=== PATIENT | female | born 1935 | race Caucasian/White ===

== ENCOUNTER 2020-09-09 21:23 | Inpatient (IN) | payer MEDICARE, MEDICAID ==
[~2020-09-09] VITALS: Ht 157.5 cm; Wt 43.3 kg
[~2020-09-09 21:23] MED LIST: ANAS1TAB7 PO; ASPI-1497 PO; ATOR20TA PO; CIME400T PO; CLOP75TA33 PO; DOCU-138 PO; DONE10TA43 PO; FERR-63 PO; GLYB5TAB7 PO; LISI10TA26 PO; MEMA1TAB PO; METF-414 PO; NAPR220C15 PO; TAMO20TA4 PO
[2020-09-09 21:30] VITALS: BP 151/62
[2020-09-09] MEDS ORDERED: ZOLPIDEM TARTRATE 5MG TABLET PO PRN (23:45)
[2020-09-09] MEDS ORDERED: ACETAMINOPHEN 325MG TABLET PO PRN (23:45)
[2020-09-09] MEDS ORDERED: ONDANSETRON HCL 4MG TABLET PO PRN (23:45)
[2020-09-09] MEDS ORDERED: DEXTROSE 50% WATER 50ML SYRINGE IV PRN (23:45)
[2020-09-09] MEDS ORDERED: MAGNESIUM/ALUMINUM HYDROXIDE/SIMETHICONE 30ML UDC PO PRN (23:45)
[2020-09-09] MEDS ORDERED: CLONIDINE 0.1MG TABLET PO PRN (23:45)
[2020-09-09] MEDS ORDERED: GUAIFENESIN 200MG/10ML SUGAR FREE UDC PO PRN (23:45)
[2020-09-10] MEDS: INSULIN LISPRO 100 UNITS/ML SUBCUT SCH ×4 (06:11→21:00)
[2020-09-10] MEDS: BLOOD SUGAR DIAGNOSTIC STRIP TEST SCH ×4 (06:11→21:34)
[2020-09-10] MEDS: HYDROCODONE/ACETAMINOPHEN 5/325MG TABLET PO PRN ×2 (06:13→13:04)
[2020-09-10 08:17] VITALS: BP 130/54
[2020-09-10] MEDS: FERROUS SULFATE 325MG TABLET PO SCH (08:46)
[2020-09-10] MEDS: OMEPRAZOLE 20MG CAPSULE EXTENDED RELEASE PO SCH ×2 (08:46→21:33)
[2020-09-10] MEDS: MULTIVITAMINS,THER W-MINERALS TABLET PO SCH (08:46)
[2020-09-10 12:09] VITALS: BP 125/61
[2020-09-10] MEDS ORDERED: METF-414 MT (14:08)
[2020-09-10] MEDS ORDERED: MEMA5TAB7 MT (14:13)
[2020-09-10] MEDS ORDERED: NAPR220C61 MT (14:15)
[2020-09-10] MEDS ORDERED: TAMO20TA4 MT (14:16)
[2020-09-10] MEDS ORDERED: DOCU-138 PO (14:16)
[2020-09-10] MEDS ORDERED: DONE10TA36 PO (14:18)
[2020-09-10] MEDS ORDERED: CLOP75TA33 PO (14:20)
[2020-09-10] MEDS ORDERED: ANAS1TAB49 PO (14:20)
[2020-09-10] MEDS ORDERED: GLYB5TAB7 PO (14:20)
[2020-09-10] MEDS ORDERED: LISI10TA26 PO (14:21)
[2020-09-10] MEDS ORDERED: CIME400T PO (14:22)
[2020-09-10] MEDS ORDERED: LACTULOSE 20G/30ML UDC PO PRN (14:30)
[2020-09-10] MEDS ORDERED: NA PHOS,M-B/NA PHOS,DI-BA ENEMA 118ML PR PRN (14:30)
[2020-09-10] MEDS: DOCUSATE SODIUM 100MG CAPSULE PO SCH ×2 (14:30→16:43)
[2020-09-10 16:00] VITALS: BP 135/65
[2020-09-10] MEDS: BISACODYL 5MG TABLET PO PRN (16:43)
[2020-09-10 19:40] LABS: CLARITY URINE CLEAR (CLEAR); COLOR URINE YELLOW (YELLOW); KETONES URINE NEGATIVE (NEGATIVE); LEUKOCYTE ESTERASE URINE 1+ (NEGATIVE); NITRITE URINE NEGATIVE (NEGATIVE); OCCULT BLOOD URINE NEGATIVE (NEGATIVE); PROTEIN URINE 1+ (NEGATIVE); SPECIFIC GRAVITY URINE 1.016 (1.005-1.030)
[2020-09-10 20:00] VITALS: BP 158/77
[2020-09-10] MEDS: ATORVASTATIN CALCIUM 20MG TABLET PO SCH (21:34)
[2020-09-11] MEDS: BLOOD SUGAR DIAGNOSTIC STRIP TEST SCH ×4 (05:53→20:40)
[2020-09-11] MEDS: INSULIN LISPRO 100 UNITS/ML SUBCUT SCH ×4 (05:53→20:40)
[2020-09-11] MEDS: BISACODYL 5MG TABLET PO PRN (05:54)
[2020-09-11] MEDS: HYDROCODONE/ACETAMINOPHEN 5/325MG TABLET PO PRN ×2 (05:55→12:49)
[2020-09-11 06:32] LABS: CHLORIDE 111 mEq/L (98-107)
[2020-09-11 06:39] LABS: BASOPHILS % 0.3 % (0.0-2.0); EOSINOPHILS % 2.1 % (0.0-5.0); HEMATOCRIT. 25.9 % (36.0-48.0); HEMOGLOBIN. 8.6 g/dL (12.0-16.0); MEAN CORPUSCULAR HEMOGLOBIN 27.3 pg (28.0-32.0); MEAN CORPUSCULAR VOLUME 81.8 fL (81.0-99.0); MEAN PLATELET VOLUME 8.5 fl (7.4-10.4); MONOCYTES % 11.4 % (2.0-8.0); NEUTROPHILS % 75.2 % (40.0-76.0); PLATELET 202 x1000/uL (130-400); RED BLOOD CELL COUNT 3.17 mill/uL (4.2-5.4)
[2020-09-11 07:55] VITALS: BP 130/54
[2020-09-11] MEDS: FERROUS SULFATE 325MG TABLET PO SCH (08:32)
[2020-09-11] MEDS: MULTIVITAMINS,THER W-MINERALS TABLET PO SCH (08:32)
[2020-09-11] MEDS: TAMSULOSIN HCL 0.4MG SR CAPSULE PO SCH (08:32)
[2020-09-11] MEDS: OMEPRAZOLE 20MG CAPSULE EXTENDED RELEASE PO SCH ×2 (08:32→20:40)
[2020-09-11] MEDS: DOCUSATE SODIUM 100MG CAPSULE PO SCH ×2 (08:32→16:35)
[2020-09-11 20:00] VITALS: BP 112/48
[2020-09-11] MEDS: ATORVASTATIN CALCIUM 20MG TABLET PO SCH (20:40)
[2020-09-12] MEDS: HYDROCODONE/ACETAMINOPHEN 5/325MG TABLET PO PRN ×3 (00:06→21:18)
[2020-09-12] MEDS: INSULIN LISPRO 100 UNITS/ML SUBCUT SCH ×4 (05:56→21:00)
[2020-09-12] MEDS: BLOOD SUGAR DIAGNOSTIC STRIP TEST SCH ×4 (05:56→21:21)
[2020-09-12 06:50] LABS: CHLORIDE 113 mEq/L (98-107)
[2020-09-12 07:30] LABS: BASOPHILS % 0.5 % (0.0-2.0); EOSINOPHILS % 4.2 % (0.0-5.0); HEMATOCRIT. 24.1 % (36.0-48.0); HEMOGLOBIN. 7.9 g/dL (12.0-16.0); LYMPHOCYTES % 17.3 % (20.0-50.0); MEAN CORPUSCULAR VOLUME 81.9 fL (81.0-99.0); MEAN PLATELET VOLUME 8.3 fl (7.4-10.4); MONOCYTES % 11.3 % (2.0-8.0); NEUTROPHILS % 66.7 % (40.0-76.0); PLATELET 217 x1000/uL (130-400); RED BLOOD CELL COUNT 2.94 mill/uL (4.2-5.4); RED CELL DISTRIBUTION WIDTH 20.1 % (11.6-14.6)
[2020-09-12 07:44] VITALS: BP 122/51
[2020-09-12] MEDS: FERROUS SULFATE 325MG TABLET PO SCH (08:35)
[2020-09-12] MEDS: OMEPRAZOLE 20MG CAPSULE EXTENDED RELEASE PO SCH ×2 (08:35→21:19)
[2020-09-12] MEDS: MULTIVITAMINS,THER W-MINERALS TABLET PO SCH (08:35)
[2020-09-12] MEDS: DOCUSATE SODIUM 100MG CAPSULE PO SCH ×2 (08:35→16:39)
[2020-09-12] MEDS: TAMSULOSIN HCL 0.4MG SR CAPSULE PO SCH (08:36)
[2020-09-12] MEDS ORDERED: POTASSIUM CHLORIDE 20MEQ TABLET SR PO NR (12:15)
[2020-09-12 20:00] VITALS: BP 133/57
[2020-09-12] MEDS: ATORVASTATIN CALCIUM 20MG TABLET PO SCH (21:19)
[2020-09-13] MEDS: BLOOD SUGAR DIAGNOSTIC STRIP TEST SCH ×4 (05:54→21:40)
[2020-09-13 06:49] LABS: BASOPHILS % 0.5 % (0.0-2.0); EOSINOPHILS % 3.7 % (0.0-5.0); HEMATOCRIT. 26.7 % (36.0-48.0); HEMOGLOBIN. 8.8 g/dL (12.0-16.0); LYMPHOCYTES % 16.2 % (20.0-50.0); MEAN CORPUSCULAR VOLUME 82.2 fL (81.0-99.0); MONOCYTES % 10.6 % (2.0-8.0); PLATELET 268 x1000/uL (130-400); RED BLOOD CELL COUNT 3.24 mill/uL (4.2-5.4); RED CELL DISTRIBUTION WIDTH 20.2 % (11.6-14.6)
[2020-09-13] MEDS: OMEPRAZOLE 20MG CAPSULE EXTENDED RELEASE PO SCH ×2 (06:49→21:43)
[2020-09-13 07:04] LABS: CHLORIDE 111 mEq/L (98-107)
[2020-09-13] MEDS: BISACODYL 5MG TABLET PO PRN (08:01)
[2020-09-13] MEDS: HYDROCODONE/ACETAMINOPHEN 5/325MG TABLET PO PRN (08:02)
[2020-09-13] MEDS: TAMSULOSIN HCL 0.4MG SR CAPSULE PO SCH (08:03)
[2020-09-13] MEDS: FERROUS SULFATE 325MG TABLET PO SCH (08:03)
[2020-09-13] MEDS: MULTIVITAMINS,THER W-MINERALS TABLET PO SCH (08:03)
[2020-09-13] MEDS: DOCUSATE SODIUM 100MG CAPSULE PO SCH ×2 (08:03→16:10)
[2020-09-13 08:04] VITALS: BP 146/68
[2020-09-13] MEDS: INSULIN LISPRO 100 UNITS/ML SUBCUT SCH ×4 (08:10→21:00)
[2020-09-13] MEDS: ACETAMINOPHEN 325MG TABLET PO PRN ×2 (11:24→21:43)
[2020-09-13 20:00] VITALS: BP 119/96
[2020-09-13] MEDS: METOPROLOL TARTRATE 25MG TABLET PO SCH (21:42)
[2020-09-13] MEDS: ATORVASTATIN CALCIUM 20MG TABLET PO SCH (21:42)
[2020-09-14] MEDS: BLOOD SUGAR DIAGNOSTIC STRIP TEST SCH ×4 (07:23→21:00)
[2020-09-14] MEDS: INSULIN LISPRO 100 UNITS/ML SUBCUT SCH ×4 (07:25→21:00)
[2020-09-14 07:52] VITALS: BP 159/76
[2020-09-14] MEDS: HYDROCODONE/ACETAMINOPHEN 5/325MG TABLET PO PRN ×2 (08:09→13:30)
[2020-09-14] MEDS: FERROUS SULFATE 325MG TABLET PO SCH (08:10)
[2020-09-14] MEDS: TAMSULOSIN HCL 0.4MG SR CAPSULE PO SCH (08:10)
[2020-09-14] MEDS: OMEPRAZOLE 20MG CAPSULE EXTENDED RELEASE PO SCH ×2 (08:10→22:31)
[2020-09-14] MEDS: MULTIVITAMINS,THER W-MINERALS TABLET PO SCH (08:10)
[2020-09-14] MEDS: DOCUSATE SODIUM 100MG CAPSULE PO SCH ×2 (08:10→16:48)
[2020-09-14] MEDS: METOPROLOL TARTRATE 25MG TABLET PO SCH ×2 (08:11→22:31)
[2020-09-14] MEDS: LIDOCAINE 5% PATCH TOP SCH (08:12)
[2020-09-14] MEDS ORDERED: LISINOPRIL 20MG TABLET PO NR (10:15)
[2020-09-14 20:00] VITALS: BP 121/54
[2020-09-14] MEDS: ATORVASTATIN CALCIUM 20MG TABLET PO SCH (22:30)
[2020-09-14] MEDS: ACETAMINOPHEN 325MG TABLET PO PRN (22:31)
[2020-09-15] MEDS: BLOOD SUGAR DIAGNOSTIC STRIP TEST SCH ×4 (06:16→21:08)
[2020-09-15] MEDS: INSULIN LISPRO 100 UNITS/ML SUBCUT SCH ×4 (06:16→21:08)
[2020-09-15 08:16] LABS: CHLORIDE 110 mEq/L (98-107)
[2020-09-15 08:17] LABS: HEMATOCRIT. 25.7 % (36.0-48.0); HEMOGLOBIN. 8.3 g/dL (12.0-16.0); MEAN CORPUSCULAR HEMOGLOBIN 26.8 pg (28.0-32.0); MEAN CORPUSCULAR VOLUME 82.9 fL (81.0-99.0); PLATELET 351 x1000/uL (130-400); RED CELL DISTRIBUTION WIDTH 20.5 % (11.6-14.6)
[2020-09-15] MEDS: ACETAMINOPHEN 325MG TABLET PO PRN (08:18)
[2020-09-15] MEDS: MULTIVITAMINS,THER W-MINERALS TABLET PO SCH (08:18)
[2020-09-15] MEDS: TAMSULOSIN HCL 0.4MG SR CAPSULE PO SCH (08:18)
[2020-09-15] MEDS: FERROUS SULFATE 325MG TABLET PO SCH (08:19)
[2020-09-15] MEDS: LISINOPRIL 20MG TABLET PO SCH (08:19)
[2020-09-15] MEDS: DOCUSATE SODIUM 100MG CAPSULE PO SCH ×2 (08:19→17:00)
[2020-09-15] MEDS: OMEPRAZOLE 20MG CAPSULE EXTENDED RELEASE PO SCH ×2 (08:19→20:37)
[2020-09-15] MEDS: LIDOCAINE 5% PATCH TOP SCH ×2 (08:20→09:53)
[2020-09-15] MEDS: METOPROLOL TARTRATE 25MG TABLET PO SCH ×2 (08:20→20:44)
[2020-09-15 08:21] VITALS: BP 134/57
[2020-09-15 14:27] LABS: NUCLEATED RED BLOOD CELLS 1 /100 WBC; PLATELET ESTIMATE NORMAL
[2020-09-15] MEDS ORDERED: TRIAMCINOLONE ACETONIDE 40MG/ML 1ML VIAL INJ NR (15:15)
[2020-09-15] MEDS ORDERED: ETHYL CHLORIDE CAN TOP NR (15:15)
[2020-09-15] MEDS ORDERED: BUPIVACAINE HCL 0.5% (5MG/ML) 50ML IR NR (15:15)
[2020-09-15] MEDS ORDERED: LIDOCAINE HCL 1% 20ML VIAL (Pyxis) INJ INFIL NR (15:15)
[2020-09-15] MEDS ORDERED: BUPIVACAINE HCL/PF 0.5% (5MG/ML) 10ML INFIL NR (15:30)
[2020-09-15] MEDS: ATORVASTATIN CALCIUM 20MG TABLET PO SCH (20:37)
[2020-09-16] MEDS: BLOOD SUGAR DIAGNOSTIC STRIP TEST SCH ×4 (06:51→21:28)
[2020-09-16] MEDS: HYDROCODONE/ACETAMINOPHEN 5/325MG TABLET PO PRN (06:51)
[2020-09-16 07:51] VITALS: BP 131/64
[2020-09-16] MEDS: TAMSULOSIN HCL 0.4MG SR CAPSULE PO SCH (08:49)
[2020-09-16] MEDS: FERROUS SULFATE 325MG TABLET PO SCH (08:49)
[2020-09-16] MEDS: LISINOPRIL 20MG TABLET PO SCH (08:50)
[2020-09-16] MEDS: OMEPRAZOLE 20MG CAPSULE EXTENDED RELEASE PO SCH ×2 (08:50→21:25)
[2020-09-16] MEDS: MULTIVITAMINS,THER W-MINERALS TABLET PO SCH (08:50)
[2020-09-16] MEDS: METOPROLOL TARTRATE 25MG TABLET PO SCH ×2 (08:52→21:26)
[2020-09-16] MEDS: INSULIN LISPRO 100 UNITS/ML SUBCUT SCH ×4 (08:53→21:28)
[2020-09-16] MEDS: DOCUSATE SODIUM 100MG CAPSULE PO SCH ×2 (08:54→16:51)
[2020-09-16] MEDS: LIDOCAINE 5% PATCH TOP SCH ×2 (08:56)
[2020-09-16 20:00] VITALS: BP_SYST 134; BP_DIAS 50; BP_DIAS 55
[2020-09-16] MEDS: ATORVASTATIN CALCIUM 20MG TABLET PO SCH (21:26)
[2020-09-17 04:00] VITALS: BP 139/76
[2020-09-17] MEDS: BLOOD SUGAR DIAGNOSTIC STRIP TEST SCH ×4 (06:34→21:38)
[2020-09-17] MEDS: HYDROCODONE/ACETAMINOPHEN 5/325MG TABLET PO PRN (07:13)
[2020-09-17 08:00] VITALS: BP 148/55
[2020-09-17] MEDS: DOCUSATE SODIUM 100MG CAPSULE PO SCH ×2 (08:28→16:53)
[2020-09-17] MEDS: MULTIVITAMINS,THER W-MINERALS TABLET PO SCH (08:28)
[2020-09-17] MEDS: FERROUS SULFATE 325MG TABLET PO SCH (08:28)
[2020-09-17] MEDS: OMEPRAZOLE 20MG CAPSULE EXTENDED RELEASE PO SCH ×2 (08:28→21:36)
[2020-09-17] MEDS: TAMSULOSIN HCL 0.4MG SR CAPSULE PO SCH (08:35)
[2020-09-17] MEDS: LIDOCAINE 5% PATCH TOP SCH ×2 (08:36)
[2020-09-17] MEDS: METOPROLOL TARTRATE 25MG TABLET PO SCH ×2 (08:41→21:36)
[2020-09-17] MEDS: LISINOPRIL 20MG TABLET PO SCH (08:42)
[2020-09-17] MEDS: INSULIN LISPRO 100 UNITS/ML SUBCUT SCH ×4 (08:48→21:37)
[2020-09-17 20:00] VITALS: BP 143/52
[2020-09-17] MEDS: ATORVASTATIN CALCIUM 20MG TABLET PO SCH (21:36)
[2020-09-18] MEDS: HYDROCODONE/ACETAMINOPHEN 5/325MG TABLET PO PRN (05:46)
[2020-09-18] MEDS: BLOOD SUGAR DIAGNOSTIC STRIP TEST SCH ×4 (05:46→21:30)
[2020-09-18 06:46] LABS: BASOPHILS % 0.1 % (0.0-2.0); HEMATOCRIT. 28.3 % (36.0-48.0); HEMOGLOBIN. 9.4 g/dL (12.0-16.0); LYMPHOCYTES % 9.1 % (20.0-50.0); MEAN CORPUSCULAR HEMOGLOBIN 27.8 pg (28.0-32.0); MEAN PLATELET VOLUME 7.8 fl (7.4-10.4); MONOCYTES % 8.7 % (2.0-8.0); NEUTROPHILS % 82.1 % (40.0-76.0); PLATELET 425 x1000/uL (130-400); RED BLOOD CELL COUNT 3.36 mill/uL (4.2-5.4); RED CELL DISTRIBUTION WIDTH 20.6 % (11.6-14.6)
[2020-09-18 06:50] LABS: CHLORIDE 108 mEq/L (98-107)
[2020-09-18 08:00] VITALS: BP 144/65
[2020-09-18] MEDS: INSULIN LISPRO 100 UNITS/ML SUBCUT SCH ×4 (09:00→21:00)
[2020-09-18] MEDS: LIDOCAINE 5% PATCH TOP SCH ×2 (09:00→09:52)
[2020-09-18] MEDS: DOCUSATE SODIUM 100MG CAPSULE PO SCH ×2 (09:00→17:00)
[2020-09-18] MEDS: TAMSULOSIN HCL 0.4MG SR CAPSULE PO SCH (09:39)
[2020-09-18] MEDS: MULTIVITAMINS,THER W-MINERALS TABLET PO SCH (09:40)
[2020-09-18] MEDS: LISINOPRIL 20MG TABLET PO SCH (09:40)
[2020-09-18] MEDS: METOPROLOL TARTRATE 25MG TABLET PO SCH ×2 (09:40→21:29)
[2020-09-18] MEDS: OMEPRAZOLE 20MG CAPSULE EXTENDED RELEASE PO SCH ×2 (09:40→21:28)
[2020-09-18] MEDS: FERROUS SULFATE 325MG TABLET PO SCH (09:41)
[2020-09-18 20:00] VITALS: BP 127/55
[2020-09-18] MEDS: ATORVASTATIN CALCIUM 20MG TABLET PO SCH (21:28)
[2020-09-19] MEDS: BLOOD SUGAR DIAGNOSTIC STRIP TEST SCH ×4 (06:03→21:04)
[2020-09-19] MEDS: INSULIN LISPRO 100 UNITS/ML SUBCUT SCH ×4 (06:04→21:00)
[2020-09-19] MEDS: ACETAMINOPHEN 325MG TABLET PO PRN ×2 (06:09→20:36)
[2020-09-19 08:09] VITALS: BP 142/59
[2020-09-19] MEDS: LIDOCAINE 5% PATCH TOP SCH ×4 (08:30→09:00)
[2020-09-19] MEDS: TAMSULOSIN HCL 0.4MG SR CAPSULE PO SCH (08:31)
[2020-09-19] MEDS: LISINOPRIL 20MG TABLET PO SCH (08:31)
[2020-09-19] MEDS: DOCUSATE SODIUM 100MG CAPSULE PO SCH ×3 (08:31→16:28)
[2020-09-19] MEDS: MULTIVITAMINS,THER W-MINERALS TABLET PO SCH (08:32)
[2020-09-19] MEDS: METOPROLOL TARTRATE 25MG TABLET PO SCH ×2 (08:32→20:37)
[2020-09-19] MEDS: OMEPRAZOLE 20MG CAPSULE EXTENDED RELEASE PO SCH ×2 (08:32→20:37)
[2020-09-19] MEDS: FERROUS SULFATE 325MG TABLET PO SCH (08:32)
[2020-09-19 20:00] VITALS: BP 136/57
[2020-09-19] MEDS: ATORVASTATIN CALCIUM 20MG TABLET PO SCH (20:37)
[2020-09-20] MEDS: BISACODYL 5MG TABLET PO PRN (06:09)
[2020-09-20] MEDS: BLOOD SUGAR DIAGNOSTIC STRIP TEST SCH ×4 (06:09→21:09)
[2020-09-20] MEDS: HYDROCODONE/ACETAMINOPHEN 5/325MG TABLET PO PRN ×2 (06:10→16:58)
[2020-09-20 08:04] VITALS: BP 121/39
[2020-09-20] MEDS: MULTIVITAMINS,THER W-MINERALS TABLET PO SCH (08:53)
[2020-09-20] MEDS: DOCUSATE SODIUM 100MG CAPSULE PO SCH ×2 (08:53→16:12)
[2020-09-20] MEDS: LISINOPRIL 20MG TABLET PO SCH (08:53)
[2020-09-20] MEDS: METOPROLOL TARTRATE 25MG TABLET PO SCH ×2 (08:53→21:08)
[2020-09-20] MEDS: OMEPRAZOLE 20MG CAPSULE EXTENDED RELEASE PO SCH ×2 (08:54→21:00)
[2020-09-20] MEDS: TAMSULOSIN HCL 0.4MG SR CAPSULE PO SCH (08:55)
[2020-09-20] MEDS: FERROUS SULFATE 325MG TABLET PO SCH (08:55)
[2020-09-20] MEDS: INSULIN LISPRO 100 UNITS/ML SUBCUT SCH ×4 (08:58→21:00)
[2020-09-20] MEDS: LIDOCAINE 5% PATCH TOP SCH ×2 (08:59)
[2020-09-20 15:39] VITALS: BP 115/49
[2020-09-20 20:00] VITALS: BP 126/50
[2020-09-20] MEDS: ATORVASTATIN CALCIUM 20MG TABLET PO SCH (21:08)
[2020-09-21] MEDS: BLOOD SUGAR DIAGNOSTIC STRIP TEST SCH ×4 (05:56→21:57)
[2020-09-21 07:50] VITALS: BP 107/43
[2020-09-21] MEDS: LIDOCAINE 5% PATCH TOP SCH ×4 (09:00→09:28)
[2020-09-21] MEDS: INSULIN LISPRO 100 UNITS/ML SUBCUT SCH ×4 (09:00→21:00)
[2020-09-21] MEDS: DOCUSATE SODIUM 100MG CAPSULE PO SCH ×2 (09:00→17:00)
[2020-09-21] MEDS: METOPROLOL TARTRATE 25MG TABLET PO SCH ×2 (09:00→22:00)
[2020-09-21] MEDS: LISINOPRIL 20MG TABLET PO SCH (09:00)
[2020-09-21] MEDS: MULTIVITAMINS,THER W-MINERALS TABLET PO SCH (09:25)
[2020-09-21] MEDS: TAMSULOSIN HCL 0.4MG SR CAPSULE PO SCH (09:26)
[2020-09-21] MEDS: HYDROCODONE/ACETAMINOPHEN 5/325MG TABLET PO PRN ×2 (09:26→14:15)
[2020-09-21] MEDS: FERROUS SULFATE 325MG TABLET PO SCH (09:27)
[2020-09-21] MEDS: OMEPRAZOLE 20MG CAPSULE EXTENDED RELEASE PO SCH ×2 (09:27→21:58)
[2020-09-21 09:59] LABS: BASOPHILS % 0.1 % (0.0-2.0); EOSINOPHILS % 1.2 % (0.0-5.0); HEMATOCRIT. 30.7 % (36.0-48.0); HEMOGLOBIN. 9.8 g/dL (12.0-16.0); LYMPHOCYTES % 7.4 % (20.0-50.0); MEAN CORPUSCULAR HEMOGLOBIN 27.3 pg (28.0-32.0); MEAN CORPUSCULAR VOLUME 85.8 fL (81.0-99.0); MEAN PLATELET VOLUME 8.4 fl (7.4-10.4); NEUTROPHILS % 85.3 % (40.0-76.0); PLATELET 428 x1000/uL (130-400); RED BLOOD CELL COUNT 3.58 mill/uL (4.2-5.4); RED CELL DISTRIBUTION WIDTH 22.3 % (11.6-14.6)
[2020-09-21 10:09] LABS: CHLORIDE 111 mEq/L (98-107)
[2020-09-21 20:00] VITALS: BP 129/46
[2020-09-21] MEDS: ATORVASTATIN CALCIUM 20MG TABLET PO SCH (21:58)
[2020-09-22] MEDS: BLOOD SUGAR DIAGNOSTIC STRIP TEST SCH ×4 (06:21→21:58)
[2020-09-22] MEDS: INSULIN LISPRO 100 UNITS/ML SUBCUT SCH ×4 (07:46→21:00)
[2020-09-22] MEDS: METOPROLOL TARTRATE 25MG TABLET PO SCH ×2 (08:14→21:00)
[2020-09-22] MEDS: OMEPRAZOLE 20MG CAPSULE EXTENDED RELEASE PO SCH ×2 (08:15→21:55)
[2020-09-22] MEDS: MULTIVITAMINS,THER W-MINERALS TABLET PO SCH (08:15)
[2020-09-22] MEDS: FERROUS SULFATE 325MG TABLET PO SCH (08:16)
[2020-09-22] MEDS: LISINOPRIL 20MG TABLET PO SCH (08:16)
[2020-09-22] MEDS: TAMSULOSIN HCL 0.4MG SR CAPSULE PO SCH (08:16)
[2020-09-22] MEDS: HYDROCODONE/ACETAMINOPHEN 5/325MG TABLET PO PRN ×2 (08:20→15:11)
[2020-09-22] MEDS: LIDOCAINE 5% PATCH TOP SCH ×2 (08:21)
[2020-09-22] MEDS: DOCUSATE SODIUM 100MG CAPSULE PO SCH ×2 (08:21→17:00)
[2020-09-22 08:22] VITALS: BP 123/48
[2020-09-22 20:00] VITALS: BP 95/32
[2020-09-22] MEDS: ATORVASTATIN CALCIUM 20MG TABLET PO SCH (21:55)
[2020-09-23 01:00] VITALS: BP 124/42
[2020-09-23] MEDS: BLOOD SUGAR DIAGNOSTIC STRIP TEST SCH ×2 (05:51→11:56)
[2020-09-23 08:01] VITALS: BP 130/45
[2020-09-23] MEDS: METOPROLOL TARTRATE 25MG TABLET PO SCH (08:31)
[2020-09-23] MEDS: MULTIVITAMINS,THER W-MINERALS TABLET PO SCH (08:31)
[2020-09-23] MEDS: DOCUSATE SODIUM 100MG CAPSULE PO SCH ×2 (08:31→08:36)
[2020-09-23] MEDS: FERROUS SULFATE 325MG TABLET PO SCH (08:32)
[2020-09-23] MEDS: TAMSULOSIN HCL 0.4MG SR CAPSULE PO SCH (08:32)
[2020-09-23] MEDS: LISINOPRIL 20MG TABLET PO SCH (08:32)
[2020-09-23] MEDS: OMEPRAZOLE 20MG CAPSULE EXTENDED RELEASE PO SCH (08:32)
[2020-09-23] MEDS: LIDOCAINE 5% PATCH TOP SCH ×2 (08:35→08:36)
[2020-09-23] MEDS: INSULIN LISPRO 100 UNITS/ML SUBCUT SCH ×2 (08:35→12:05)
[2020-09-23 10:59] VITALS: BP 130/45
== END 2020-09-23 15:12 | disposition home health service (06) | DRG 536 ==
PROVIDERS: ADMIT Psychiatry & Neurology Neurology; ATTEND Internal Medicine
DX: S72.142A Displaced intertrochanteric fracture of left femur, initial encounter for closed fracture (principal); D63.8 Anemia in other chronic diseases classified elsewhere; E11.51 Type 2 diabetes mellitus with diabetic peripheral angiopathy without gangrene; E78.00 Pure hypercholesterolemia, unspecified; F17.210 Nicotine dependence, cigarettes, uncomplicated; I25.10 Atherosclerotic heart disease of native coronary artery without angina pectoris; M13.0 Polyarthritis, unspecified; E78.5 Hyperlipidemia, unspecified; I15.0 Renovascular hypertension; Z96.0 Presence of urogenital implants; R33.9 Retention of urine, unspecified; R55 Syncope and collapse; I95.9 Hypotension, unspecified; R53.81 Other malaise; W18.39XA Other fall on same level, initial encounter; Y92.89 Other specified places as the place of occurrence of the external cause; Z90.11 Acquired absence of right breast and nipple; Z95.5 Presence of coronary angioplasty implant and graft; Z85.3 Personal history of malignant neoplasm of breast; I25.2 Old myocardial infarction; Z79.899 Other long term (current) drug therapy; Y93.89 Activity, other specified; Y99.8 Other external cause status
CPT/HCPCS: 36415; 73501; 80048; 81003; 82962; 85025; 97110; 97116; 97162; 97166; 97530; 97535; J1815; J3301; J3490; Q0162